=== PATIENT | male | born 1995 | race Caucasian/White ===

== ENCOUNTER 2018-09-21 17:32 | Emergency (ER) | payer OTHER ==
[2018-09-21 19:54] LABS: URINE PH (Dip) POC 6.5 (5.0-8.5)
[2018-09-21 19:54] LABS: URINE BLOOD (Dip) POC Negative (NEGATIVE); URINE GLUCOSE (Dip) POC Negative (NEGATIVE); URINE KETONES (Dip) POC Negative (NEGATIVE); URINE LEUKOCYTE EST (Dip) POC Negative (NEGATIVE); URINE NITRITE (Dip) POC Negative (NEGATIVE); URINE TOTAL PROTEIN POC Negative (NEGATIVE)
== END 2018-09-21 20:36 | disposition home or self-care (01) ==
LOC: FTE 17:32
DX: R10.32 Left lower quadrant pain (principal)
CPT/HCPCS: 74018; 81003